=== PATIENT | male | born 1990 | race Two or more races ===

== ENCOUNTER 2018-06-20 10:45 | Emergency (ER) | payer SELFPAY ==
[~2018-06-20] VITALS: Ht 180.3 cm; Wt 62.6 kg
[2018-06-20 11:07] VITALS: BP 120/68
--- NOTE | 2018-06-20 12:00 | RAD ---
TESTICULAR/SCROTUM History: Left scrotal swelling and redness, pain, lump Comparison: None. Findings: Multiple grayscale, color, duplex spectral analysis waveform images of the testicles and scrotum are submitted. Right testicle measured 3.9 x 2.7 x 2 cm. Left testicle measured 4.6 x 2.7 x 2.1 cm. There are small hydroceles bilaterally. There is normal low resistance vascularity of interrogated intratesticular vessels bilaterally. No intratesticular mass is demonstrated on either side. There is no asymmetric hyperemia of the epididymes. Area of concern is reportedly in the superior left scrotal region. In the area of concern, there is oblong focus of hypoechogenicity about 1.4 x 1.4 x 0.6 cm in size, fairly superficial in location. There are internal echoes present. This is not associated with significant internal vascularity, some vascularity near the periphery. Impression: 1. There is no evidence of testicular torsion or intratesticular mass on either side. Area of concern in the left superior scrotal region corresponds with superficial oblong focus of hypoechogenicity which may be due to complex fluid/abscess or phlegmon, diffuse internal echoes. Electronically signed by: Arash Franco MD (06/20/2018 11:57 AM) [id number]
[2018-06-20 12:02] LABS: BILIRUBIN,URINE NEGATIVE (NEG); CLARITY,URINE CLEAR; COLOR,URINE YELLOW; NITRITE,URINE NEGATIVE (NEG); PROTEIN,URINE NEGATIVE (NEG-TRACE)
[2018-06-20 12:15] LABS: RBC,URINE OCC /HPF (0-2)
[2018-06-20 12:16] LABS: BACTERIA,URINE 0 /HPF (0-FEW); SQUAMOUS EPITHELIAL CELL,UR OCC /LPF
[2018-06-20] MEDS ORDERED: DIPHTH,PERTUSS(ACELL),TET TOX 0.5 ML DISP.SYRIN. VAX IM ONE (12:30)
[2018-06-20] MEDS ORDERED: CLIN150C14 PO (12:51)
--- NOTE | 2018-06-20 12:52 | PHYS DOC ---
Past Medical History Past Medical History: Other Additional Past Medical Histor: Brain tumor Past Surgical History: Other Additional Past Surgical Histo: Adenoids removed, Thumb surgery, brain surgery x7 Alcohol Use: Occasionally Drug Use: None Adult General Chief Complaint Chief Complaint: GROIN PAIN HPI HPI Patient is a 27 year old male who presents with left groin swelling that he noted 2 days ago. Patient denies fever. Denies any urinary symptoms. Review of Systems Review of Systems Constitutional: Denies fever or chills [] Musculoskeletal: Denies back pain or joint pain [] Integument: left groin swelling Neurologic: Denies headache, focal weakness or sensory changes [] All other systems were reviewed and found to be within normal limits, except as documented in this note. Current Medications Current Medications Current Medications Medications (Trade) Dose Ordered Sig/Lacie Start Time Stop Time Status Last Admin Dose Admin Diphtheria/ Tetanus/Acell Pertussis (Boostrix) 0.5 ml ONCE ONCE 06/20/18 12:30 06/20/18 12:31 DC 06/20/18 12:27 0.5 ML Allergies Allergies Allergies Coded Allergies Type Severity Reaction Last Updated Verified diphenhydramine Allergy Unknown Swelling 03/13/15 No morphine Adverse Reaction Mild 03/13/15 No Uncoded Allergies Type Severity Reaction Last Updated Verified bleach Adverse Reaction Unknown 03/13/15 Physical Exam Physical Exam Constitutional: Well developed, well nourished, no acute distress, non-toxic appearance. [] Skin: Warm, dry, left scrotum with an area of induration approximately 1.5 x 1.5 centimeters. The area is warm tender to touch, the area has erythema over it , there is no fluctuance to the area. Back: No tenderness, no CVA tenderness. [] Extremities: No tenderness, no cyanosis, no clubbing, ROM intact, no edema. [] Neurologic: Alert and oriented X 3, normal motor function, normal sensory function, no focal deficits noted. [] Psychologic: Affect normal, judgement normal, mood normal. [] Current Patient Data Vital Signs Vital Signs Date Time Temp Pulse Resp B/P (MAP) Pulse Ox O2 Delivery O2 Flow Rate FiO2 06/20/18 11:07 98.3 91 14 120/68 (85) 96 Room Air 98.3 Lab Values Laboratory Tests Test 06/20/18 11:50 Urine Collection Type Void Urine Color Yellow Urine Clarity Clear Urine pH 6.0 Urine Specific Lee 1.025 Urine Protein Negative mg/dL (NEG-TRACE) Urine Glucose (UA) Negative mg/dL (NEG) Urine Ketones (Stick) Negative mg/dL (NEG) Urine Blood Negative (NEG) Urine Nitrite Negative (NEG) Urine Bilirubin Negative (NEG) Urine Urobilinogen Dipstick 1.0 mg/dL (0.2 mg/dL) Urine Leukocyte Esterase Negative (NEG) Urine RBC Occ /HPF (0-2) Urine WBC 1-4 /HPF (0-4) Urine Squamous Epithelial Cells Occ /LPF Urine Bacteria 0 /HPF (0-FEW) Urine Mucus Marked /LPF EKG EKG [] Radiology/Procedures Radiology/Procedures []PROCEDURE: TESTICULAR/SCROTUM TESTICULAR/SCROTUM History: Left scrotal swelling and redness, pain, lump Comparison: None. Findings: Multiple grayscale, color, duplex spectral analysis waveform images of the testicles and scrotum are submitted. Right testicle measured 3.9 x 2.7 x 2 cm. Left testicle measured 4.6 x 2.7 x 2.1 cm. There are small hydroceles bilaterally. There is normal low resistance vascularity of interrogated intratesticular vessels bilaterally. No intratesticular mass is demonstrated on either side. There is no asymmetric hyperemia of the epididymes. Area of concern is reportedly in the superior left scrotal region. In the area of concern, there is oblong focus of hypoechogenicity about 1.4 x 1.4 x 0.6 cm in size, fairly superficial in location. There are internal echoes present. This is not associated with significant internal vascularity, some vascularity near the periphery. Impression: 1. There is no evidence of testicular torsion or intratesticular mass on either side. Area of concern in the left superior scrotal region corresponds with superficial oblong focus of hypoechogenicity which may be due to complex fluid/abscess or phlegmon, diffuse internal echoes. Electronically signed by: Citlalli Juarez MD (06/20/2018 11:57 AM) [id number] DICTATED and SIGNED BY: CITLALLI JUAREZ MD DATE: 06/20/18 1158 Course & Med Decision Making Course & Med Decision Making Pertinent Labs and Imaging studies reviewed. (See chart for details) Patient has an area of induration on the left scrotum for couple days. Ultrasound-area of concern in the left superior scrotal region corresponds with superficial oblong focus of hypoechogenicity which may be due to complex fluid/abscess or phlegmon, diffuse internal echoes. Patient's tetanus was updated. There is no fluctuance to the abscess on his scrotal area. Patient was put on on clindamycin. Recommended warm compresses to the area. Instructed to follow-up with the PCP in the next 1 week. Provided return precautions. Dragon Disclaimer Dragon Disclaimer This electronic medical record was generated, in whole or in part, using a voice recognition dictation system. Departure Departure Impression: Primary Impression: Abscess of scrotum Additional Impression: Cellulitis, scrotum Disposition: 01 HOME, SELF-CARE Condition: STABLE Referrals: UNKNOWN PCP NAME (PCP) MELBA GUTIERREZ MD follow up in 1-2 weeks as needed Patient Instructions: Abscess, Care After, Cellulitis, [id number] Additional Instructions: You have an abscess and cellulitis of the scrotum. Take the prescribed antibiotics until completed. Apply warm compresses to the area twice a day. Follow-up with your doctor in 1-2 weeks. Come back to the ED at any point symptoms worsen. Scripts Clindamycin Hcl (CLINDAMYCIN HCL) 150 Mg Capsule 3 CAP PO TID, #90 CAP Prov: GAVIOTA LOPEZ APRN 06/20/18 Problem Qualifiers GAVIOAT LOPEZ APRN Jun 20, 2018 12:52
== END 2018-06-20 13:10 | disposition home or self-care (01) ==
LOC: ER 10:45
DX: N49.2 Inflammatory disorders of scrotum (principal); Z88.5 Allergy status to narcotic agent; Z88.8 Allergy status to other drugs, medicaments and biological substances
CPT/HCPCS: 76870; 81001; 87491; 87591; 90471; 90715; 99285

== ENCOUNTER 2019-05-09 15:35 | Emergency (ER) | payer SELFPAY ==
[~2019-05-09] VITALS: Ht 180.3 cm; Wt 62.6 kg
[~2019-05-09 15:35] MED LIST: CLIN150C14 PO
[2019-05-09 16:00] VITALS: BP 111/71
[2019-05-09] MEDS ORDERED: CLIN150C14 PO (16:44)
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
== END 2019-05-09 17:23 | disposition home or self-care (01) ==
LOC: ER 15:35
DX: S61.215D Laceration without foreign body of left ring finger without damage to nail, subsequent encounter (principal); Z88.8 Allergy status to other drugs, medicaments and biological substances; Z88.5 Allergy status to narcotic agent; Z91.048 Other nonmedicinal substance allergy status; W23.0XXD Caught, crushed, jammed, or pinched between moving objects, subsequent encounter
CPT/HCPCS: 99283

== ENCOUNTER 2020-04-26 23:52 | Emergency (ER) | payer SELFPAY ==
[~2020-04-26] VITALS: Ht 180.3 cm; Wt 62.3 kg
[2020-04-27] MEDS ORDERED: silver sulfADIAZINE 1% CREAM 25GM TUBE. TP ONE (00:30)
[2020-04-27 01:29] VITALS: BP 109/70
[2020-04-27] MEDS ORDERED: HYDROmorphone 2 MG/ML VIAL IM ONE (01:30)
[2020-04-27] MEDS ORDERED: BACITRACIN TOPICAL OINT PACKET. TP ONE (01:30)
[2020-04-27] MEDS ORDERED: ONDANSETRON PF 4 MG/2 ML VIAL. IM ONE (01:30)
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
[2020-04-27] MEDS ORDERED: HYDR-3164 PO (02:12)
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
== END 2020-04-27 02:17 | disposition home or self-care (01) ==
LOC: ER 23:52
DX: S92.412A Displaced fracture of proximal phalanx of left great toe, initial encounter for closed fracture (principal); T23.252A Burn of second degree of left palm, initial encounter; F17.200 Nicotine dependence, unspecified, uncomplicated; Z88.5 Allergy status to narcotic agent; Z88.8 Allergy status to other drugs, medicaments and biological substances; X08.8XXA Exposure to other specified smoke, fire and flames, initial encounter; Y93.89 Activity, other specified; Y92.89 Other specified places as the place of occurrence of the external cause; Y99.8 Other external cause status
CPT/HCPCS: 16020; 73630; 96372; 99283; J1170

== ENCOUNTER 2021-05-03 22:08 | Emergency (ER) | payer BC ==
[~2021-05-03] VITALS: Ht 180.3 cm; Wt 64.5 kg
[~2021-05-03 22:08] MED LIST changes: -CLIN150C14 PO; +CLIN150C15 PO; +HYDR-3164 PO
[2021-05-03 22:18] VITALS: BP 115/67
[2021-05-03] MEDS ORDERED: MUPI22OI2 TP (22:42)
[2021-05-03] MEDS ORDERED: MUPIROCIN 2 % NASAL OINTMENT 22GM TUBE. TP STA (22:42)
--- NOTE | 2021-05-03 22:43 | ED.ADGEN ---
Past Medical History Past Medical History: Anxiety, Other Additional Past Medical Histor: brain mass Past Surgical History: Other Additional Past Surgical Histo: Adenoids removed, Thumb surgery, brain surgery x7 Smoking Status: Current Every Day Smoker Alcohol Use: Occasionally Drug Use: None General Adult EDM: Chief Complaint: SKIN PROBLEM HPI: HPI: Patient is a 30 year old male, accompanied by his , who presents to the emergency department with complaints of painful sores to above his upper lip since yesterday. Patient states he has a history of fever blisters, he has been putting Carmex on the site with no improvement. Patient states that today his upper lip started to swell. He denies any fever, cough, shortness of breath, sore throat, headache, or drainage from the site. Patient denies any new medications or detergents. He states that the site did itch a little but now mostly escobedo. He denies any sores or ulcerations inside of his mouth. He currently rates his discomfort a 5 out of 10 on the pain scale, he denies any alleviating factors. Review of Systems: Review of Systems: Complete ROS is negative unless otherwise noted in HPI. Allergies: Allergies: Allergies Coded Allergies Type Severity Reaction Last Updated Verified diphenhydramine Allergy Intermediate Swelling 04/27/20 No sodium hypochlorite solution Allergy Intermediate BLEACH 04/27/20 Yes morphine Adverse Reaction Mild 03/13/15 No Physical Exam: PE: See Above constitutional: Well developed, well nourished, no acute distress, non-toxic appearance. [] HENT: Normocephalic, atraumatic, bilateral external ears normal, nose normal. [] Eyes: PERRLA, EOMI, conjunctiva normal, no discharge. [] Neck: Normal range of motion, no stridor. [] Cardiovascular:Heart rate regular rhythm Lungs & Thorax: Respirations even and unlabored, no retractions, no respiratory distress Skin: Warm, dry; erythema with localized edema to the upper lip concerning for folliculitis, no ulcerations of the mucosal surface of the lip, mild warmth to palpation, no fluctuance Extremities: No cyanosis, ROM intact, no edema. [] Neurologic: Alert and oriented X 3, no focal deficits noted. [] Psychologic: Affect normal, judgement normal, mood normal. [] Current Patient Data: Vital Signs: Vital Signs Date Time Temp Pulse Resp B/P (MAP) Pulse Ox O2 Delivery O2 Flow Rate FiO2 05/03/21 22:18 99.0 84 18 115/67 (83) 99 Room Air 99.0 EKG: EKG: [] Heart Score: C/O Chest Pain: No Risk Scores: Score 0 - 3: 2.5% MACE over next 6 weeks - Discharge Home Score 4 - 6: 20.3% MACE over next 6 weeks - Admit for Clinical Observation Score 7 - 10: 72.7% MACE over next 6 weeks - Early Invasive Strategies Radiology/Procedures: Radiology/Procedures: [] Course & Med Decision Making: Course & Med Decision Making Pertinent Labs and Imaging studies reviewed. (See chart for details) [] Dragon Disclaimer: Dragon Disclaimer: This electronic medical record was generated, in whole or in part, using a voice recognition dictation system. Departure Departure Impression: Primary Impression: Folliculitis Disposition: HOME / SELF CARE / HOMELESS Condition: STABLE Referrals: NO PCP (PCP) Patient Instructions: Folliculitis Additional Instructions: Fill the prescription and use it as directed. He can also take an o cch-bju-[id number] antihistamine such as Zyrtec or Claritin for relief of the swelling. Apply ice to the swollen area as needed for comfort. Tylenol or ibuprofen as needed for pain. Follow-up with your primary care doctor in the next 1 to 2 days for reevaluation, return to the ER symptoms worsen or fever develops. [facility] [address] [place] [address] [facility] [address] [place] [address] [facility] [address] [facility] [place] [address] [facility] [address] [place] [address] [facility] [address] [place] [address] [facility] [address] [place] [address] [facility] [address] [place] [address] [facility] [address] [place] [address] [facility] [address] [place] [address] [facility] [address] [place] [address] Scripts Mupirocin (MUPIROCIN OINTMENT) 22 Gm Oint...g. 1 ASTRID TP TID for WOUND CARE for 7 Days, #1 TUBE 0 Refills Prov: FRANCO SHELL CASING INSPECTOR 05/03/21 FRANCO SHELL CASING INSPECTOR May 03, 2021 22:43
== END 2021-05-03 22:55 | disposition home or self-care (01) ==
LOC: ER 22:08
DX: L73.9 Follicular disorder, unspecified (principal); F17.200 Nicotine dependence, unspecified, uncomplicated; Z88.5 Allergy status to narcotic agent
CPT/HCPCS: 99283

== ENCOUNTER 2021-05-12 01:32 | Emergency (ER) | payer BC ==
[~2021-05-12] VITALS: Ht 180.3 cm; Wt 64.5 kg
[~2021-05-12 01:32] MED LIST changes: +MUPI22OI2 TP
[2021-05-12 01:54] LABS: BILIRUBIN,URINE NEGATIVE (NEG); CLARITY,URINE CLEAR; NITRITE,URINE NEGATIVE (NEG); PROTEIN,URINE NEGATIVE (NEG-TRACE); UROBILINOGEN,URINE 0.2 mg/dL (0.2 mg/dL)
[2021-05-12 02:02] LABS: COLOR,URINE PINK
[2021-05-12 02:03] LABS: BACTERIA,URINE 0 /HPF (0-FEW); RBC,URINE TNTC /HPF (0-2); WBC,URINE RARE /HPF (0-4)
[2021-05-12] MEDS ORDERED: DOXY100C2 PO (02:19)
--- NOTE | 2021-05-12 02:21 | PHYS DOC ---
Past Medical History Past Medical History: Anxiety, Other Additional Past Medical Histor: brain mass Past Surgical History: Other Additional Past Surgical Histo: Adenoids removed, Thumb surgery, brain surgery x7 Smoking Status: Current Every Day Smoker Alcohol Use: Occasionally Drug Use: None General Adult EDM: Chief Complaint: BLOOD IN URINE HPI: HPI: Patient is a 30 year old male presents with the chief complaint of dysuria. Patient states 3 days ago pain in right testicle-- felt like someone kicked him. Since pain has resolved in testicle now patient has dysuria and hematuria. Denies discharge from penis. Patient is . Denies any recent sexual activity. Review of Systems: Review of Systems: Constitutional: Denies fever or chills. [] Eyes: Denies change in visual acuity. [] HENT: Denies nasal congestion or sore throat. [] Respiratory: Denies cough or shortness of breath. [] Cardiovascular: Denies chest pain or edema. [] GI: Denies abdominal pain, nausea, vomiting, bloody stools or diarrhea. [] : positive hematuria/dysuria. [] Musculoskeletal: Denies back pain or joint pain. [] Integument: Denies rash. [] Neurologic: Denies headache, focal weakness or sensory changes. [] Endocrine: Denies polyuria or polydipsia. [] Lymphatic: Denies swollen glands. [] Psychiatric: Denies depression or anxiety. [] Heart Score: C/O Chest Pain: N/A Risk Factors: Risk Factors: DM, Current or recent (<one month) smoker, HTN, HLP, family history of CAD, obesity. Risk Scores: Score 0 - 3: 2.5% MACE over next 6 weeks - Discharge Home Score 4 - 6: 20.3% MACE over next 6 weeks - Admit for Clinical Observation Score 7 - 10: 72.7% MACE over next 6 weeks - Early Invasive Strategies Allergies: Allergies: Allergies Coded Allergies Type Severity Reaction Last Updated Verified diphenhydramine Allergy Intermediate Swelling 04/27/20 No sodium hypochlorite solution Allergy Intermediate BLEACH 04/27/20 Yes morphine Adverse Reaction Mild 03/13/15 No Physical Exam: PE: Constitutional: Well developed, well nourished, no acute distress, non-toxic appearance. [] HENT: Normocephalic, atraumatic, bilateral external ears normal, oropharynx moist, no oral exudates, nose normal. [] Eyes: PERRLA, EOMI, conjunctiva normal, no discharge. [] Neck: Normal range of motion, no tenderness, supple, no stridor. [] Cardiovascular:Heart rate regular rhythm, no murmur [] Lungs & Thorax: Bilateral breath sounds clear to auscultation [] Abdomen: Bowel sounds normal, soft, no tenderness, no masses, no pulsatile masses. [] Skin: Warm, dry, no erythema, no rash. [] Back: No tenderness, no CVA tenderness. [] Extremities: No tenderness, no cyanosis, no clubbing, ROM intact, no edema. [] Neurologic: Alert and oriented X 3, normal motor function, normal sensory function, no focal deficits noted. [] Psychologic: Affect normal, judgement normal, mood normal. [] Current Patient Data: Vital Signs: Vital Signs Date Time Temp Pulse Resp B/P (MAP) Pulse Ox O2 Delivery O2 Flow Rate FiO2 05/12/21 01:35 98.7 80 18 131/83 (83) 99 Room Air 98.7 EKG: EKG: [] Radiology/Procedures: Radiology/Procedures: [] Course & Med Decision Making: Course & Med Decision Making Pertinent Labs and Imaging studies reviewed. (See chart for details) []Treated with rocephin 250mg IM discharged on Rx Doxy. DDx prostatitis versus epididymitis Vanessa Disclaimer: Vanessa Disclaimer: This electronic medical record was generated, in whole or in part, using a voice recognition dictation system. Departure Departure Impression: Primary Impression: Dysuria Disposition: HOME / SELF CARE / HOMELESS Condition: STABLE Referrals: NO PCP (PCP) Patient Instructions: Dysuria Scripts Doxycycline Hyclate (DOXYCYCLINE HYCLATE) 100 Mg Capsule 1 CAP PO BID, #20 CAP Prov: BRYAN LEES DO 05/12/21 BRYAN LEES DO May 12, 2021 02:21
[2021-05-12 02:39] VITALS: BP 105/67
[2021-05-12] MEDS ORDERED: cefTRIAXone IM 500 MG VIAL. IM ONE (03:00)
== END 2021-05-12 02:45 | disposition home or self-care (01) ==
LOC: ER 01:32
DX: R30.0 Dysuria (principal); R31.9 Hematuria, unspecified; N50.811 Right testicular pain; F17.200 Nicotine dependence, unspecified, uncomplicated; Z88.5 Allergy status to narcotic agent
CPT/HCPCS: 81001; 96372; 99283; J0696